=== PATIENT | male | born 1990 | race Two or more races ===

== ENCOUNTER 2021-10-07 20:28 | Emergency (ER) | payer OTHER ==
[~2021-10-07] VITALS: Ht 172.7 cm; Wt 95.3 kg
--- NOTE | 2021-10-07 20:44 | NUR ---
TO ER BED 2. [id number] FROM HOME C/O PALPITATIONS X TODAY. PT DENIES ANY CHEST PAIN. NOT IN RESPIRATORY DISTRESS. ELAVATED HR AND BP NOTED ON ARRIVAL. CONNECTED TO MONITOR. AWAITNG MD STEARNS.
[2021-10-07] MEDS ORDERED: LORAZEPAM INJ 2 MG/ML VIAL ONE (20:55)
[2021-10-07] MEDS ORDERED: IV NS 0.9% 1,000 ML BAG IV ONE (21:00)
[2021-10-07] MEDS ORDERED: LORAZEPAM INJ 2 MG/ML VIAL IV ONE (21:00)
--- NOTE | 2021-10-07 21:05 | NUR ---
ER LABORER POLE CREW @ BEDSIDE
--- NOTE | 2021-10-07 21:05 | NUR ---
Wilfrido estes in [facility] - 10/07/21 at 2108 by [place] [id number] TELE
[2021-10-07 21:35] LABS: CALCIUM, SERUM 8.6 mg/dL (8.5-10.1); CARBON DIOXIDE 26 mmol/L (21-32); CHLORIDE 102 mmol/L (98-107); GLUCOSE 131 mg/dL (74-106); SODIUM SERUM 137 mmol/L (136-145); UREA NITROGEN, BLOOD 17 mg/dL (7-18)
[2021-10-07 21:48] LABS: ALANINE AMINOTRANSFERASE 54 U/L (12-78); ALBUMIN 3.7 g/dL (3.4-5.0); ALKALINE PHOSPHATASE 99 U/L (46-116); ASPARTATE AMINOTRANSFERASE 13 U/L (15-37); BILIRUBIN,TOTAL 0.2 mg/dL (0.2-1.0); TOTAL PROTEIN, SERUM 7.4 g/dL (6.4-8.2)
[2021-10-07 21:53] LABS: BASOPHILS # (AUTO) 0.1 K/uL (0.0-0.2); BASOPHILS % (AUTO) 0.4 % (0.0-2.0); EOSINOPHILS % (AUTO) 0.9 % (0.0-6.0); HEMATOCRIT 46 % (39-51); HEMOGLOBIN 15.7 g/dL (13.5-17.5); LYMPHOCYTES # (AUTO) 3.1 K/uL (0.8-4.8); LYMPHOCYTES % (AUTO) 25.7 % (20.0-44.0); MEAN CORPUSCULAR HGB CONC 34 g/dl (31.0-36.0); MEAN CORPUSCULAR VOLUME 88 fL (80-96); MONOCYTES # (AUTO) 0.5 K/uL (0.1-1.30); NEUTROPHILS # (AUTO) 8.3 K/uL (1.8-8.9); PLATELET COUNT (AUTO) 231 K/uL (150-450); RED BLOOD CELL COUNT(AUTO) 5.21 MIL/uL (4.5-6.0)
[2021-10-07 21:58] VITALS: BP 150/88
--- NOTE | 2021-10-07 21:58 | NUR ---
Patient discharged to home in stable condition. Written and verbal after care instructions given. Patient verbalizes understanding of instruction.
== END 2021-10-07 22:02 | disposition home or self-care (01) ==
LOC: ER 20:35
DX: R00.2 Palpitations (principal)
CPT/HCPCS: 36415; 71045; 80048; 80076; 80320; 83880; 84484; 85025; 93005 ×2; 96361; 96374; 99285; J2060; J7030; G0480